=== PATIENT | male | born 1965 | race Caucasian/White ===

== ENCOUNTER 2017-11-29 16:46 | Outpatient (REF) | payer MEDICARE, MEDICAID, SELFPAY ==
[2017-11-29 21:26] LABS: Anion Gap 6.7 mmol/L (3-11); BUN 26 mg/dL (7-18); CO2 31.3 mmol/L (21.0-32.0); CREATININE 0.78 mg/dL (0.70-1.30); Calcium 8.3 mg/dL (8.5-10.1); Chloride 105 mmol/L (98-107); Cholesterol 170 mg/dL (50-200); Glucose 125 mg/dL (70-100); HDL Cholesterol 41 mg/dL (40-60); LDL CHOLESTEROL 118 mg/dL (<100); Sodium 143 mmol/L (136-145); Triglyceride 105 mg/dL (30-150)
== END 2017-11-29 17:06 ==
LOC: NCHCN 16:46
PROVIDERS: Visit Provider Internal Medicine
DX: F11.20 Opioid dependence, uncomplicated (principal); I10 Essential (primary) hypertension; R39.198 Other difficulties with micturition; R53.83 Other fatigue
CPT/HCPCS: 80048; 80061; 83721

== ENCOUNTER 2021-12-01 12:40 | Outpatient (REF) | payer MEDICARE, MEDICAID, SELFPAY ==
[2021-12-06 14:43] LABS: Codeine Negative ng/mL (Cutoff: 25); Dihydrocodeine Negative ng/mL (Cutoff: 25); Hydrocodone Negative ng/mL (Cutoff: 25); Hydromorphone Negative ng/mL (Cutoff: 25); Morphine Negative ng/mL (Cutoff: 25); Naloxone 1664 ng/mL (Cutoff: 25); Norhydrocodone Negative ng/mL (Cutoff: 25); Noroxycodone Negative ng/mL (Cutoff: 25); Noroxymorphone 30 ng/mL (Cutoff: 25); Opiates Interpretation Positive.
== END 2021-12-01 12:41 | disposition home or self-care (01) ==
LOC: NCHCN 12:40
PROVIDERS: Visit Provider Internal Medicine
DX: F11.20 Opioid dependence, uncomplicated (principal)
CPT/HCPCS: 80361; 80362; 80365

== ENCOUNTER 2023-06-09 17:00 | Outpatient (REF) | payer MEDICARE, MEDICAID, SELFPAY ==
[2023-06-09 22:56] LABS: *AMPHETAMINES SCREEN URINE Negative (Negative); *BARBITURATES SCREEN URINE Negative (Negative); *BENZODIAZEPINES SCREEN URINE Negative (Negative); Cannabinoids THC Positive (Negative); Cocaine Screen,Urine Negative (Negative); METHADONE URINE SCREEN Negative (Negative); OPIATES URINE SCREEN Negative (Negative); Tricyclic Antidepressants Positive (Negative)
== END 2023-06-09 17:01 | disposition home or self-care (01) ==
LOC: NCHCN 17:00
PROVIDERS: Referring Provider Family Medicine; Visit Provider Family Medicine
DX: F11.20 Opioid dependence, uncomplicated (principal)
CPT/HCPCS: 80307